=== PATIENT | female | born 1950 | race Hispanic/Latino ===

== ENCOUNTER → 2016-12-04 | Day surgery (SDC) | payer MEDICARE ==
[~2016-12-04] MED LIST: LISI-606 PO; METF500T4 PO; Sodium Chloride LOK Flush 10 mL Syringe IV PRN; fentaNYL-PF 50 mCg/mL 2 mL Inj IVPUSH PRN
[2016-12-04 11:03] VITALS: BP 136/88; PULSE 72; RESP 18; O2SAT 97
[2016-12-04] MEDS: 0.9% Sodium Chloride 1,000 ML IV SCH ×2 (11:38→11:50)
[2016-12-04 11:58] VITALS: BP 106/68; PULSE 69; RESP 16; O2SAT 94
[2016-12-04 12:15] VITALS: BP 108/69; PULSE 69; RESP 16; O2SAT 97
--- NOTE | 2016-12-04 13:53 | ENDO ---
[address] [address] ENDOSCOPY PROCEDURE PATIENT: MARIO ALBRECHT : 1950 MR#: [id number] ADMIT: 12/04/2016 JOB ID: [id number] DATE: 12/04/2016 PROCEDURE: Colonoscopy. INDICATION: Screening. Patient's ASA classification is II. Mallampati score is II. MEDICATIONS: Versed at 3 mg, fentanyl 75 mcg. INSTRUMENT USED: PCF-H180AL Prep quality was good. PROCEDURE DETAILS: After informed consent was obtained, the patient was brought into the GI suite, where she was placed on oxygen via nasal cannula and monitored with continuous pulse oximeter, telemetry, and blood pressure monitoring. A time-out was performed. Then, she was placed in the left lateral decubitus position and medications were administered for sedation. Digital rectal exam was performed which was unremarkable. The colonoscope was then inserted into the rectum and advanced under direct visualization to the cecum, which was identified by the presence of the ileocecal valve and appendiceal orifice. Once the cecum was reached, the colonoscope was withdrawn back into the rectum. Mucosa and lumen were examined. In the rectum, retroflexion was performed. Following retroflexion, remaining air in the rectum suctioned and procedure was completed. FINDINGS: 1. In the transverse colon, there was a diminutive polyp that was removed with cold biopsy forceps. 2. Scattered diverticula were seen throughout the sigmoid colon. 3. As the colonoscope was withdrawn through the anal canal, small to moderate-sized internal hemorrhoids were noted. IMPRESSION: 1. Transverse colon polyp. 2. Sigmoid diverticulosis. 3. Internal hemorrhoids. RECOMMENDATIONS: 1. Fiber rich diet. 2. Repeat colonoscopy pending polyp pathology results. COMPLICATIONS: None. ESTIMATED BLOOD LOSS: Less than 5 mL.
--- NOTE | 2016-12-10 09:31 | PATH ---
SURGICAL PATHOLOGY Attending Physician:Flavio Harper CASE STATUS: Signed Out PATIENT NAME: MARIO ALBRECHT PID: [id number] : 1950 DATE COLLECTED:12/04/2016 22:00 SPECIMEN: Colon, Polyp CLINICAL HISTORY: 1). TRANSVERSE COLON POLYP FINAL DIAGNOSIS: 1.TRANSVERSE COLON POLYP: TUBULAR ADENOMA. ICD10 D12.3 GROSS DESCRIPTION: Received in one formalin-filled container, labeled with the patient' s name and labeled "transverse polyp", are two portions of tissue which aggregate to 0.3 x 0.3 x 0.2 cm. The specimen is entirely submitted in one cassette. (DC:[facility] [id number]) MICRO DESCRIPTION: See diagnosis. ICD-9 CODES: CPT CODES: 1: 05910 Electronically Signed Out Marina White MD [facility], [place] [address] Technical component performed at [facility], [facility] [address], [place], [address]
== END | disposition home or self-care (01) ==
LOC: END 00:15
PROVIDERS: ATTEND Internal Medicine Gastroenterology
DX: Z12.11 Encounter for screening for malignant neoplasm of colon (principal); D12.3 Benign neoplasm of transverse colon; K57.30 Diverticulosis of large intestine without perforation or abscess without bleeding; K64.8 Other hemorrhoids; I10 Essential (primary) hypertension; E11.9 Type 2 diabetes mellitus without complications; Z79.84 Long term (current) use of oral hypoglycemic drugs
CPT/HCPCS: 45380; G0500; J2250; J3010; J7030